=== PATIENT | female | born 1975 | race Caucasian/White ===

== ENCOUNTER → 2017-07-29 | Outpatient (CLI) | payer BC ==
[~2017-07-29] MED LIST: CITA40TA12 PO; HYDR25TA4 PO; MULT-513 PO; PANT40TA PO
--- NOTE | 2017-07-29 13:49 | DIAGNOSTIC IMAGING REPORT ---
GUIDANCE NEEDLE PLACEMENT CLINICAL HISTORY: THYROID NODULE TECHNIQUE: Ultrasound-guided fine-needle aspiration COMPARISON STUDY: Outside ultrasound without report dated 06/09/2017. Patient gives a history of multiple prior ultrasounds of the third institution. These are also not available for comparison FINDINGS: 3 passes with a 25-gauge needle were made to a complex nodule of the left thyroid. This appears to be identical to all additional nodules on the left as well as right thyroid gland. Cellularity was minimal. IMPRESSION: 3 passes with a 25-gauge needle under ultrasound guidance. Cellularity was minimal on all passes. Final pathology is pending. If that is not conclusive, all prior studies at all prior institutions should be made available before consideration of a second biopsy is entertained. The above report was generated using voice recognition software. It may contain grammatical, syntax or spelling errors. Electronically signed by: Josh Bah M.D. 07/29/2017 1:48 PM Dictated Date/Time: 07/29/2017 1:46 PM
== END | disposition home or self-care (01) ==
LOC: C.ULTR 12:28
PROVIDERS: ATTEND Physician Assistant
DX: E04.1 Nontoxic single thyroid nodule (principal)